=== PATIENT | female | born 1975 | race Caucasian/White ===

== ENCOUNTER 2016-09-05 05:25 | Day surgery (SDC) | payer OTHER ==
--- NOTE | ~2016-09-05 | EGD ---
EGD REPORT [facility] [address] [address] NAME: MELBA SALDANA : [birth year] STATUS : REG [facility]#: [id number] AGE: 41 ADM/REG DATE : 09/05/16 MR#: [id number] REPORT SERV DATE: 09/05/16 DICTATED BY: PARVIZ FARNSWORTH DATE: 09/05/16 REPORT STATUS : Draft TRANSCRIBED BY: [facility] DATE: 09/05/16 Endoscopy Center Patient Name: Melba Saldana Date of : 1975 Attending MD: PARVIZ FARNSWORTH MD Procedure Date No Time: 09/05/2016 Procedure: Upper GI endoscopy Indications: Dyspepsia, Esophageal reflux Medicines: Monitored Anesthesia Care Complications: No immediate complications. Procedure: After obtaining informed consent, the endoscope was passed under direct vision. Throughout the procedure, the patient's blood pressure, pulse, and oxygen saturations were monitored continuously. The Endoscope was introduced through the mouth, and advanced to the second part of duodenum. The upper GI endoscopy was accomplished without difficulty. The patient tolerated the procedure well. Findings: The examined esophagus was normal. s/p sleeve gastrectomy Localized mildly erythematous mucosa without bleeding was found in the gastric antrum. Biopsies were taken with a cold forceps for histology. The duodenal bulb and 2nd part of the duodenum were normal. Impression: - Normal esophagus. - Erythematous mucosa in the antrum. Biopsied. - Normal duodenal bulb and 2nd part of the duodenum. Recommendation: - Patient has a contact number available for emergencies. The signs and symptoms of potential delayed complications were discussed with the patient. Return to normal activities tomorrow. Written discharge instructions were provided to the patient. - Return to previous diet. - Continue present medications. - Follow an antireflux regimen. - Return to GI clinic in 2 months. Procedure Code(s): --- Professional --- 99428, Esophagogastroduodenoscopy, flexible, transoral; with biopsy, single or multiple Diagnosis Code(s): --- Professional --- EGD REPORT [address] [place]. [address] NAME: MELBA SALDANA : 71 STATUS : REG [facility] PAT#: [id number] AGE: 41 ADM/REG DATE : 09/05/16 MR#: [id number] REPORT SERV DATE: 09/05/16 DICTATED BY: PARVIZ FARNSWORTH DATE: 09/05/16 REPORT STATUS : Draft TRANSCRIBED BY: [employer] DATE: 09/05/16 K31.9, Disease of stomach and duodenum, unspecified K30, Functional dyspepsia K21.9, Gastro-esophageal reflux disease without esophagitis CPT copyright 2013 [employer]. All rights reserved. The codes documented in this report are preliminary and upon balance truing inspector review may be revised to meet current compliance requirements. PARVIZ FARNSWORTH MD 09/05/2016 7:48 AM This report has been signed electronically. Number of Addenda: 0 Note Initiated On: 09/05/2016 7:[address] [place] [id number]
--- NOTE | ~2016-09-05 | OP ---
Record Of Operation [facility] [address] [place]. [address] NAME: EDEL SALDANA : [birth year] STATUS : REG [facility] PAT#: [id number] AGE: 41 ADM/REG DATE : 09/05/16 MR#: [id number] REPORT SERV DATE: 09/05/16 DICTATED BY: PARVIZ FARNSWORTH DATE: 09/05/16 REPORT STATUS : Draft TRANSCRIBED BY: [employer] DATE: 09/05/16 DATE OF PROCEDURE: GI PROCEDURE NOTE PROCEDURE: Panendoscopy. INDICATION FOR PROCEDURE: Reflux symptoms. She is status post a gastric sleeve. CONSENT: Informed consent was obtained from the patient. The risks and benefits of the procedure as well as possible complications of bleeding, infection, perforation, or allergic reaction to the medicine were described in detail. Questions were entertained and answered. The patient understands and agrees to proceed. Sedation was done per Anesthesia. PROCEDURE IN DETAIL: The patient was laid in the left lateral decubitus position. After sedation was obtained, GIF endoscope was lubricated and inserted into the mouth, driven through the esophagus into the stomach, and into the first and second portion of the duodenum. On slow withdrawal, first and second portion of the duodenum appeared unremarkable. Pylorus was normal. There was some erythema noted in the antrum. Biopsies were taken. She is status post sleeve gastrectomy and anatomy was normal for her surgery. On slow withdrawal, the lower mid and upper esophagus appeared normal. Scope was withdrawn, the patient appeared to have tolerated the procedure well. IMPRESSION: 1. Erythema in the antrum. Biopsies were taken. 2. Status post sleeve gastrectomy. 3. Reflux. RECOMMENDATION: 1. Continue current medications. 2. Reflux precautions. 3. Office visit in two to three months. SCOT[employer]ITALL Parviz Farnsworth M.D. / [id number] CC: Dionisio Hargrove M.D.
[~2016-09-05 05:25] MED LIST: LEVSINTAB PO; PEPCID40 MG PO; PROTONIX20 MG PO; X5 PO; ZOLOFT25 MG PO
== END 2016-09-05 23:59 | disposition home or self-care (01) ==
LOC: DMU 05:25
PROVIDERS: Internal Medicine Gastroenterology
PROC: 0DB68ZX Excision of Stomach, Via Natural or Artificial Opening Endoscopic, Diagnostic (ICD-10-PCS; principal; 2016-09-05 07:00)
DX: K30 Functional dyspepsia (principal); K31.9 Disease of stomach and duodenum, unspecified; K21.9 Gastro-esophageal reflux disease without esophagitis; Z98.0 Intestinal bypass and anastomosis status; Z88.1 Allergy status to other antibiotic agents; Z79.899 Other long term (current) drug therapy
CPT/HCPCS: 84703; 88305